=== PATIENT | male | born 1980 | race Caucasian/White ===

== ENCOUNTER → 2020-05-01 | Outpatient (CLI) | payer BC ==
[~2020-05-01] MED LIST: OXYACE5T PO
[2020-05-01 14:18] LABS: Adenovirus F 40/41 Not Detected (NOT DETECT); Astrovirus Not Detected (NOT DETECT); Campylobacter Sp Not Detected (NOT DETECT); Cryptosporidium Not Detected (NOT DETECT); Cyclospora Cayetanensis Not Detected (NOT DETECT); E. Coli O157 Not Detected (NOT DETECT); Entamoeba Histolytica Not Detected (NOT DETECT); Enteroaggregative E. coli-EAEC Not Detected (NOT DETECT); Enteropathogenic E. coli-EPEC Not Detected (NOT DETECT); Enterotoxigenic E. coli-ETEC Not Detected (NOT DETECT); Giardia Lamblia Not Detected (NOT DETECT); Norovirus GI/GII Not Detected (NOT DETECT); Plesiomonas Shigelloides Not Detected (NOT DETECT); Rotavirus A Not Detected (NOT DETECT); Salmonella Sp Not Detected (NOT DETECT); Sapovirus Not Detected (NOT DETECT); Shiga Toxin-prod E. coli-STEC Not Detected (NOT DETECT); Shigella/Enteroin E. coli-EIEC Not Detected (NOT DETECT); Vibrio Cholerae Not Detected (NOT DETECT); Vibrio Sp Not Detected (NOT DETECT); Yersinia Enterocolitica Not Detected (NOT DETECT)
== END ==
LOC: LAB SHORT 11:00
PROVIDERS: Nurse Practitioner Family
DX: R10.9 Unspecified abdominal pain (principal); R19.7 Diarrhea, unspecified
CPT/HCPCS: 0097U; 87324

== ENCOUNTER → 2021-03-10 | Outpatient (CLI) | payer BC ==
[~2021-03-10] MED LIST changes: +AZIT250 PO; +Acetaminophen650 M1 PO; +DEXA6 PO; +MONDOXYNE NL100 MG PO; +OMEP20ER PO; +PRED20 PO; +ZOFRAN4 MG PO
[2021-03-10 15:46] LABS: BASOPHILS ABSOLUTE AUTO 0.01 K/mm3 (0.00-0.23); BASOPHILS PERCENT AUTO 0 % (0-2); EOSINOPHILS PERCENT AUTO 0 % (0-6); Hematocrit 45.4 % (37.0-53.0); Hemoglobin 15.7 g/dL (13.5-17.5); IMMATURE GRAN ABSOLUTE AUTO 0.01 K/mm3 (0.00-0.10); IMMATURE GRAN PERCENT AUTO 0 % (0-1); LYMPHOCYTES ABSOLUTE AUTO 1.21 K/mm3 (0.84-5.20); LYMPHOCYTES PERCENT AUTO 24 % (21-46); MONOCYTES ABSOLUTE AUTO 0.46 K/mm3 (0.16-1.47); MONOCYTES PERCENT AUTO 9 % (4-13); Mean Corpuscular HGB 28.5 pg (26.0-34.0); Mean Corpuscular HGB Conc 34.6 g/dL (31.5-36.5); Mean Corpuscular Volume 83 fL (80-100); Mean Platelet Volume 10.4 fL (9.1-12.4); NEUTROPHILS ABSOLUTE AUTO 3.38 K/mm3 (1.96-9.15); NEUTROPHILS PERCENT AUTO 67 % (41-73); Platelet Count 153 K/mm3 (150-400); RDW Coefficient Variation 14.7 % (11.7-14.2); RDW Standard Deviation 44.7 fL (35.1-46.3); White Blood Cell Count 5.07 K/mm3 (4.00-11.30)
[2021-03-10 15:55] LABS: Bun/Creatinine Ratio 9.8 (12.0-20.0); Calcium, Blood 8.2 mg/dL (8.5-10.1); Creatinine, Blood 1.63 mg/dL (0.60-1.20); Potassium, Blood 3.8 mmol/L (3.5-5.5)
== END | disposition home or self-care (01) ==
LOC: LAB SHORT 15:41 → LAB 15:41
PROVIDERS: Physician Assistant Surgical
DX: U07.1 COVID-19 (principal)
CPT/HCPCS: 80048; 85025; 85379

== ENCOUNTER 2021-03-12 14:24 | Inpatient (IN) | payer BC ==
[~2021-03-12] VITALS: Ht 180.3 cm; Wt 121.9 kg
[~2021-03-12 14:24] MED LIST changes: -AZIT250 PO; -Acetaminophen650 M1 PO; -DEXA6 PO; -MONDOXYNE NL100 MG PO; -OMEP20ER PO; -PRED20 PO; -ZOFRAN4 MG PO
[2021-03-12] MEDS ORDERED: ZOFRAN4 MG PO (14:59)
[2021-03-12] MEDS ORDERED: PRED20 PO (14:59)
[2021-03-12] MEDS ORDERED: MONDOXYNE NL100 MG PO (15:00)
[2021-03-12 15:42] LABS: BASOPHILS ABSOLUTE AUTO 0.01 K/mm3 (0.00-0.23); BASOPHILS PERCENT AUTO 0 % (0-2); EOSINOPHILS PERCENT AUTO 0 % (0-6); Hematocrit 41.7 % (37.0-53.0); Hemoglobin 14.3 g/dL (13.5-17.5); IMMATURE GRAN ABSOLUTE AUTO 0.07 K/mm3 (0.00-0.10); IMMATURE GRAN PERCENT AUTO 1 % (0-1); LYMPHOCYTES PERCENT AUTO 7 % (21-46); MONOCYTES ABSOLUTE AUTO 0.44 K/mm3 (0.16-1.47); MONOCYTES PERCENT AUTO 4 % (4-13); Mean Corpuscular HGB 28.4 pg (26.0-34.0); Mean Corpuscular HGB Conc 34.3 g/dL (31.5-36.5); Mean Corpuscular Volume 83 fL (80-100); Mean Platelet Volume 10.4 fL (9.1-12.4); NEUTROPHILS ABSOLUTE AUTO 9.13 K/mm3 (1.96-9.15); NEUTROPHILS PERCENT AUTO 88 % (41-73); Platelet Count 222 K/mm3 (150-400); RDW Standard Deviation 45.2 fL (35.1-46.3); Red Blood Cell Count 5.04 M/mm3 (4.30-5.90); White Blood Cell Count 10.35 K/mm3 (4.00-11.30)
[2021-03-12 16:04] LABS: Alanine Aminotransfer (ALT/SGP 31 U/L (12-78); Albumin, Blood 2.6 g/dL (3.4-5.0); Albumin/Globulin Ratio 0.6 (0.8-1.8); Alk Phos 34 U/L (50-136); Anion Gap 9 mmol/L (6-16); Aspartate Aminotrans (AST/SGOT 71 U/L (12-37); Bilirubin, Total 0.5 mg/dL (0.1-1.0); Blood Urea Nitrogen 13 mg/dL (8-24); Bun/Creatinine Ratio 11.5 (12.0-20.0); CO2, Blood 23 mmol/L (21-32); Calcium, Blood 7.6 mg/dL (8.5-10.1); Chloride, Blood 103 mmol/L (98-108); Creatinine, Blood 1.13 mg/dL (0.60-1.20); Globulin, Blood 4.1 g/dL (2.2-4.0); Glomerular Filtration Rate >60 (60-); Glucose, Blood 118 mg/dL (70-99); Potassium, Blood 3.9 mmol/L (3.5-5.5); Sodium, Blood 135 mmol/L (136-145); Total Protein, Blood 6.7 g/dL (6.4-8.2); Troponin I 0.041 ng/mL (0.000-0.040)
[2021-03-12] MEDS ORDERED: AZIT250 PO (20:03)
--- NOTE | 2021-03-13 19:18 | NUR ---
SHIFT SUMMARY PT IS AO. PT DENIES PAIN, N/V, SOB. PT MEDICATED X1 FOR FEVER. PT CONTINUES TO TAKE O2 OFF T/O SHIFT AND DESATS TO AROUND 86% ON RA. PT EDUCATED ON NEED FOR O2. PT APPETITE IS POOR. PT IS SBA IN ROOM. PT IS ON 8 L VIA OXYMIZER WITH SATS GREATER THAN 90%. ENHANCED ISOLATION PRECAUTIONS MAINTAINED T/O SHIFT. PT IS IN BED, CALL LIGHT IN REACH, LOW POSITION.
--- NOTE | 2021-03-14 12:17 | NUR ---
TRANSFER NOTE THIS RN GAVE REPORT TO IKE SLATER ON PCU. PT IS ON BIPAP WITH SATS AT 93%. PT BELONGINGS GATHERED FROM ROOM. PT CHART HANDED TO BILLING ASSISTANT ON PCU. PT IS IN BED, RT AND RN AT BEDSIDE, CALL LIGHT IN REACH.
--- NOTE | 2021-03-14 13:49 | NUR ---
ARRIVAL TO PCU PATIENT ARRIVED TO PCU UNIT FROM [facility] BY STRIKER BED AT APROX 1217. [facility] FLOOR RN, [facility] RN, RT, AND BETH RN ALL WITH PATIENT DURING ARRIVAL AND HAND OFF. REPORT WAS GIVEN TO THIS RN FROM MURALI RAMIRES ON [facility]. PATIENT IS ON BIPAP 16/10 70% SPO2 90%. PATIENT REPOSITIONED TO LEFT SIDE. VSS. TELE SR 83. VSS. CALL LIGHT WITHIN REACH. WILL CONTINUE TO MONITOR AND PROVIDE CARE.
[2021-03-14 14:14] LABS: Hematocrit 41.8 % (37.0-53.0); Hemoglobin 13.9 g/dL (13.5-17.5); Mean Corpuscular HGB 28.1 pg (26.0-34.0); Mean Corpuscular HGB Conc 33.3 g/dL (31.5-36.5); Mean Corpuscular Volume 84 fL (80-100); Mean Platelet Volume 10.5 fL (9.1-12.4); Platelet Count 288 K/mm3 (150-400); RDW Coefficient Variation 15.5 % (11.7-14.2); RDW Standard Deviation 47.4 fL (35.1-46.3); Red Blood Cell Count 4.95 M/mm3 (4.30-5.90); White Blood Cell Count 15.41 K/mm3 (4.00-11.30)
[2021-03-14 14:20] LABS: Albumin, Blood 2.2 g/dL (3.4-5.0); Anion Gap 6 mmol/L (6-16); Blood Urea Nitrogen 19 mg/dL (8-24); Bun/Creatinine Ratio 18.4 (12.0-20.0); CO2, Blood 27 mmol/L (21-32); Chloride, Blood 103 mmol/L (98-108); Creatinine, Blood 1.03 mg/dL (0.60-1.20); Glomerular Filtration Rate >60 (60-); Glucose, Blood 130 mg/dL (70-99); Phosphorus, Blood 3.2 mg/dL (2.5-4.9); Potassium, Blood 4.3 mmol/L (3.5-5.5); Sodium, Blood 136 mmol/L (136-145)
[2021-03-14 14:43] LABS: BAND PERCENT MAN 1 % (0-8); BASOPHILS PERCENT MAN 0 % (0-2); EOSINOPHILS PERCENT MAN 0 % (0-6); LYMPHOCYTES PERCENT MAN 2 % (21-46); METAMYELOCYTE ABSOLUTE MAN 0.15 K/mm3 (0.00-0.00); METAMYELOCYTE PERCENT MAN 1 % (0-0); MONOCYTES ABSOLUTE MAN 0.15 K/mm3 (0.16-1.47); MONOCYTES PERCENT MAN 1 % (4-13); NEUTROPHILS ABSOLUTE MAN 14.79 K/mm3 (1.96-9.15); SEG NEUTROPHILS PERCENT MAN 95 % (41-73); TOTAL CELLS COUNTED 100
--- NOTE | 2021-03-14 15:46 | NUR ---
echocardiogram complete
--- NOTE | 2021-03-14 17:34 | NUR ---
SHIFT SUMMARY PATIENT ALERT AND ORIENTATED X4. VSS. SPO2 >90% ON BIPAP 16/10 70%. TELE SR 70-80S. PATIENT REPORTS NO CHEST PAIN OR SHORTNESS OF BREATH. PATIENT HAS A FEVER AND PATIENT RECEIVED TYELNOL PER EMAR, UPON REASSESSMENT PATIENT STILL HAD A LOW GRADE FEVER, SEE VITAL SIGNS, AND PATIENT BLANKETS WERE REMOVED. PATIENT ENCOURAGED TO PRONE AND LAY ON SIDE. PATIENT WILL LAY ON SIDE, BUT TURNS SELF BACK ONTO BACK. NO ACUTE CHANGES THIS SHIFT. CALL LIGHT WITHIN REACH. WILL CONTINUE TO MONITOR AND PROVIDE CARE UNTIL HAND OFF WITH NEXT SHIFT.
[2021-03-15 04:13] LABS: Hematocrit 40.9 % (37.0-53.0); Hemoglobin 13.4 g/dL (13.5-17.5); Mean Corpuscular HGB 27.5 pg (26.0-34.0); Mean Corpuscular HGB Conc 32.8 g/dL (31.5-36.5); Mean Corpuscular Volume 84 fL (80-100); Mean Platelet Volume 10.6 fL (9.1-12.4); Platelet Count 300 K/mm3 (150-400); RDW Coefficient Variation 15.3 % (11.7-14.2); RDW Standard Deviation 46.9 fL (35.1-46.3); Red Blood Cell Count 4.88 M/mm3 (4.30-5.90)
[2021-03-15 04:43] LABS: Anion Gap 7 mmol/L (6-16); Blood Urea Nitrogen 20 mg/dL (8-24); CO2, Blood 27 mmol/L (21-32); Chloride, Blood 103 mmol/L (98-108); Creatinine, Blood 0.91 mg/dL (0.60-1.20); Glomerular Filtration Rate >60 (60-); Glucose, Blood 109 mg/dL (70-99); Phosphorus, Blood 2.4 mg/dL (2.5-4.9); Sodium, Blood 137 mmol/L (136-145)
--- NOTE | 2021-03-15 06:09 | NUR ---
SHIFT SUMMARY PT A&OX4. IRRITABLE, WITHDRAWN. PT STATES, "I CANT DO THIS ANYMORE" AND PUNCHES PILLOW. SP02>90% ON BIPAP 01/05, 70% FI02. PT TOOK BIPAP OFF X2 THIS SHIFT AND DESATTED TO MID 70'S. WHEN ASKED WHY HE TOOK IT OFF, PT STATED, "I DONT KNOW". PT SATS INCREASED QUICKLY ONCE BIPAP REPLACED. TELEMETRY READS NSR, HR 80'S. PT DID NOT SLEEP MOST OF NIGHT, LAID IN BED AWAKE. DENIED PAIN. USED URINAL AT BEDSIDE. CALL LIGHT IN REACH. WILL GIVE REPORT TO ONCOMING NURSE.
[2021-03-15 06:10] LABS: BAND PERCENT MAN 2 % (0-8); BASOPHILS ABSOLUTE MAN 0.11 K/mm3 (0.00-0.23); BASOPHILS PERCENT MAN 1 % (0-2); EOSINOPHILS PERCENT MAN 0 % (0-6); LYMPHOCYTES ABSOLUTE MAN 0.89 K/mm3 (0.84-5.20); LYMPHOCYTES PERCENT MAN 8 % (21-46); MONOCYTES ABSOLUTE MAN 0.67 K/mm3 (0.16-1.47); MONOCYTES PERCENT MAN 6 % (4-13); NEUTROPHILS ABSOLUTE MAN 9.52 K/mm3 (1.96-9.15); SEG NEUTROPHILS PERCENT MAN 83 % (41-73); TOTAL CELLS COUNTED 100
--- NOTE | 2021-03-15 07:50 | NUR ---
ASSUMED CARE: REPORT RECEIVED FROM MURALI Mace RN. ASSUMED CARE OF THIS PT AT APPROX 0700. ON ASSESSMENT, THE PT IS RESTING QUIETLY & AWAKENS EASILY TO VERBAL STIMULUS. HE IS A&O TO ALL, FLAT IN AFFECT & WITHDRAWN OVERALL. LS DIM T/O, COARSE IN BASES. PT ON BIPAP W/ SETTINGS: 16/10, 70% FIO2 & BACKUP RATE 10 W/ O2 SATS > 92%. TELE SHOWS SR W/ HR 80s, BP STABLE. THE PT STS FEELING "VERY HUNGRY" THIS AM BUT HE CANNOT TOLERATE BEING OFF OF BIPAP LONG ENOUGH TO EAT & THERE IS CURRENTLY NO AIRVO AVAILABLE FOR HIS USE. RT AWARE OF NEED FOR BIPAP IN THIS ROOM WHEN AVAILABLE. PT VOIDS USING URINAL. SKIN CONDITION OVERALL CDI & PT REPOSITIONS SELF IN BED W/O DIFFICULTY. WILL CONTINUE TO MONITOR & UPDATE NEEDED.
--- NOTE | 2021-03-15 08:25 | NUR ---
DR SANTIAGO: PROVIDER AT BEDSIDE TO EVAL PT THIS AM. THIS RN HAS DISCUSSED PT's FLAT AFFECT & OVERALL BEING WITHDRAWN. THE PT HAS STATED TO THE PROVIDER THAT HE DOES FEEL "DEPRESSED." DR SANTIAGO IS GOING TO REVIEW THE PT's CHART & DETERMINE IF STARTING AN ANTIDEPRESSANT MEDICATION WOULD BE APPROPRIATE FOR THE PT AT THIS TIME. SHE WOULD LIKE THIS RN TO ATTEMPT GETTING THE PT IN CONTACT W/ HIS FAMILY TODAY TO SEE IF THAT WOULD HELP IMPROVE HIS OUTLOOK ON THE SITUATION. NO OTHER CHANGES AT THIS TIME.
--- NOTE | 2021-03-15 17:37 | NUR ---
SHIFT SUMMARY: NO ACUTE CHANGES SINCE PRIOR UPDATES. PT REMAINS A&O, PLEASANT & COOPERATIVE. HE IS MORE ANIMATED W/ STAFF THIS AFTERNOON & OVERALL SEEMS IN BETTER SPIRITS. LS DIM T/O, PT ON AIRVO SINCE APPROX 1120 THIS MORNING & HAS TOLERATED THIS WELL. CURRENT SETTINGS: 60 L/MIN & 90% FIO2 W/ O2 SATS > 92% ON AVG, DESATS TO 84% W/ COUGHING EPISODES BUT RECOVERS QUICKLY W/ FOCUSED BREATHING. MONITOR SHOWS SB-SR W/ HR 40-70s, BP STABLE. THE PT IS TOLERATING PO INTAKE WELL & HAS NO GI COMPLAINTS. VOIDS USING URINAL AT BEDSIDE. SKIN CONDITION OVERALL INTACT, PT IS ABLE TO REPOSITION SELF APPROX Q2H. NEEDS ENCOURAGEMENT FOR FAR SIDE-LYING & PRONE POSITIONING. WILL CONTINUE TO MONITOR & REPORT OFF TO ONCOMING RN.
--- NOTE | 2021-03-16 02:28 | NUR ---
PAUSE BONE GRINDER W/ CALL TO THIS RN REPORTING PT HR 30's & LOW 27 BPM. PT ALSO W/ A 4.2 SEC PAUSE @ 0126. EVENT STRIP PRINTED IN CHART. PT SLEEPING IN BED AT TIME OF PAUSE. PT WOKEN & VITALS DONE, SYS BP 90's. PT DENYING SYMPTOMS, STATING "NO, I'M JUST TIRED." PT REFUSING BIPAP. SPO2 > 90% ON AIRVO @ 60L, FIO2 90%.
[2021-03-16 04:26] LABS: Hematocrit 42.4 % (37.0-53.0); Mean Corpuscular HGB 28.2 pg (26.0-34.0); Mean Corpuscular Volume 85 fL (80-100); Mean Platelet Volume 10.9 fL (9.1-12.4); Platelet Count 334 K/mm3 (150-400); RDW Coefficient Variation 15.5 % (11.7-14.2); Red Blood Cell Count 4.97 M/mm3 (4.30-5.90); White Blood Cell Count 9.09 K/mm3 (4.00-11.30)
[2021-03-16 04:40] LABS: Anion Gap 5 mmol/L (6-16); Blood Urea Nitrogen 24 mg/dL (8-24); Bun/Creatinine Ratio 28.6 (12.0-20.0); CO2, Blood 30 mmol/L (21-32); Calcium, Blood 8.3 mg/dL (8.5-10.1); Chloride, Blood 105 mmol/L (98-108); Creatinine, Blood 0.84 mg/dL (0.60-1.20); Glomerular Filtration Rate >60 (60-); Glucose, Blood 171 mg/dL (70-99); Phosphorus, Blood 4.1 mg/dL (2.5-4.9); Potassium, Blood 4.2 mmol/L (3.5-5.5); Sodium, Blood 140 mmol/L (136-145)
[2021-03-16 05:26] LABS: BASOPHILS PERCENT MAN 0 % (0-2); EOSINOPHILS PERCENT MAN 0 % (0-6); LYMPHOCYTES ABSOLUTE MAN 0.81 K/mm3 (0.84-5.20); LYMPHOCYTES PERCENT MAN 9 % (21-46); MONOCYTES ABSOLUTE MAN 0.45 K/mm3 (0.16-1.47); MONOCYTES PERCENT MAN 5 % (4-13); NEUTROPHILS ABSOLUTE MAN 7.81 K/mm3 (1.96-9.15); SEG NEUTROPHILS PERCENT MAN 86 % (41-73); TOTAL CELLS COUNTED 100
--- NOTE | 2021-03-16 06:09 | NUR ---
SHIFT SUMMARY PT A&O X4. VSS. MONITOR SHOWS SB-SR, HR 30's-60's. PT W/ 4.2 SEC PAUSE THIS SHIFT, SEE PREVIOUS NOTE & EVENT STRIP IN CHART. SPO2 > 90% ON AIRVO @ 60L, FIO2 90%. PT W/ OCCASSIONAL DESAT TO 80's W/ COUGHING OR DISLODGING OF CANNULA FROM NOSE. PT REPOSITIONING SELF IN BED, ROTATING SIDES T/O SHIFT. NO OTHER EVENTS OVER NIGHT. WILL CONTINUE TO MONITOR & PROVIDE CARE UNTIL REPORT OFF TO DAY SHIFT RN.
--- NOTE | 2021-03-16 09:10 | NUR ---
ASSUMED CARE: REPORT RECEIVED FROM YANET Mace RN. ASSUMED CARE OF THIS PT AT APPROX 0700. ON ASSESSMENT, THE PT IS AWAKE, A&O TO ALL. AFFECT IS FLAT BUT OVERALL SEEMS IMPROVED SINCE YESTERDAY AM ASSESSMENT. THE PT HAS DENIED THE NEED FOR ORDERED ZOLOFT AFTER EXPLAINATION OF THE MEDICATION & MEDICATION HAS BEEN DOCUMENTED REFUSED. THE PT STS IF HE BEGINS TO FEEL MORE "DEPRESSED" HE WILL LET NURSING STAFF KNOW SO THAT MED MAY BE RESUMED. LS DIM T/O, PT ON AIRVO W/ SETTINGS: 60 L/MIN & 90% FIO2. O2 SATS > 90% ON AVG, DESATS TO 84% W/ EXERTION OR COUGHING EPISODES. MONITOR SHOWS SB-SR W/ HR 40-60s, BP STABLE. PT HAS NO GI COMPLAINTS & IS TOLERATING PO INTAKE WELL. VOIDS W/O DIFFICULTY USING URINAL. SKIN CONDITION OVERALL INTACT, PT HAS BEEN ENCOURAGED TO REPOSITION PRONE & SIDE-LYING. WILL CONTINUE TO MONITOR & UPDATE NEEDED.
--- NOTE | 2021-03-16 15:15 | NUR ---
DR CRESPO: PROVIDER AT BEDSIDE FOR CARDIO CONSULT R/T BRADYCARDIA. SHE STS THAT SHE HAS ENCOURAGED THE PT TO WEAR THE BIPAP DURING THE NIGHT & BELIEVES THIS WILL HELP W/ THE STRAIN ON HIS HEART & LUNGS R/T COVID. THE PT STS HE DOES NOT WANT TO WEAR THE BIPAP ANYMORE DESPITE ENCOURAGEMENT. THE PROVIDER WILL BE AVAILABLE IF NEEDED.
--- NOTE | 2021-03-16 19:29 | NUR ---
SHIFT SUMMARY: NO ACUTE CHANGES SINCE PRIOR UPDATES. PT REMAINS A&O, GENERALLY COOPERATIVE W/ CARE. PT ON AIRVO W/ SETTINGS: 60 L/MIN & 100% FIO2 W/ O2 SATS 87-93%. MONITOR SHOWS SB-SR W/ HR 40-60s, BP STABLE. PT HAS NO GI COMPLAINTS, IS TOLERATING PO INTAKE WELL. VOIDS W/O DIFFICULTY USING URINAL. SKIN CONDITION OVERALL INTACT & PT HAS BEEN ABLE TO REPOSITION SELF W/O ASSISTANCE THIS SHIFT. PRONING & SIDE-LYING ENCOURAGED. WILL CONTINUE TO MONITOR & REPORT OFF TO ONCOMING RN.
[2021-03-17 04:01] LABS: BASOPHILS ABSOLUTE AUTO 0.05 K/mm3 (0.00-0.23); BASOPHILS PERCENT AUTO 0 % (0-2); EOSINOPHILS PERCENT AUTO 0 % (0-6); Hematocrit 43.2 % (37.0-53.0); Hemoglobin 14.2 g/dL (13.5-17.5); Mean Corpuscular HGB 27.7 pg (26.0-34.0); Mean Corpuscular HGB Conc 32.9 g/dL (31.5-36.5); Mean Corpuscular Volume 84 fL (80-100); Platelet Count 395 K/mm3 (150-400); RDW Coefficient Variation 15.3 % (11.7-14.2); RDW Standard Deviation 47.3 fL (35.1-46.3); Red Blood Cell Count 5.12 M/mm3 (4.30-5.90); White Blood Cell Count 11.48 K/mm3 (4.00-11.30)
[2021-03-17 04:25] LABS: Anion Gap 7 mmol/L (6-16); Blood Urea Nitrogen 26 mg/dL (8-24); Bun/Creatinine Ratio 37.1 (12.0-20.0); CO2, Blood 27 mmol/L (21-32); Calcium, Blood 8.1 mg/dL (8.5-10.1); Chloride, Blood 105 mmol/L (98-108); Glomerular Filtration Rate >60 (60-); Glucose, Blood 169 mg/dL (70-99); Phosphorus, Blood 3.7 mg/dL (2.5-4.9); Potassium, Blood 4.2 mmol/L (3.5-5.5); Sodium, Blood 139 mmol/L (136-145)
[2021-03-17 04:30] LABS: IMMATURE GRAN ABSOLUTE AUTO 0.23 K/mm3 (0.00-0.10); IMMATURE GRAN PERCENT AUTO 2 % (0-1); LYMPHOCYTES ABSOLUTE AUTO 1.49 K/mm3 (0.84-5.20); LYMPHOCYTES PERCENT AUTO 13 % (21-46); MONOCYTES ABSOLUTE AUTO 1.04 K/mm3 (0.16-1.47); MONOCYTES PERCENT AUTO 9 % (4-13); NEUTROPHILS ABSOLUTE AUTO 8.67 K/mm3 (1.96-9.15); NEUTROPHILS PERCENT AUTO 76 % (41-73)
--- NOTE | 2021-03-17 05:27 | NUR ---
SHIFT SUMMARY NO ACUTE CHANGES THIS SHIFT. VSS. AXO. PT TOLD IF HE DESATTED <90% ON AIRVO 60l 100% HE WOULD BE SWITCHED TO BIPAP. PT HAD BEEN RELUCTANT AND SOMEWHAT REFUSIVE OF BIPAP PRIOR TO THIS PER REPORT. PT ACCEPTED THIS. PT HAS NOT DESATTED <90 EXCEPT TO URINATE. THUS, PT REMAINS ON AIRVO. PT HAS BEEN BRADYCARDIC AT A FEW POINTS THIS SHIFT EVEN INTO THE 30'S, ASYMPTOMATIC. PT HAS SIDE PRONED FOR MAJORITY OF SHIFT. OTHERWISE, PT RESTING OFF AND ON T/O SHIFT. REMAINS IN ISOLATION.
--- NOTE | 2021-03-17 10:00 | NUR ---
CARE ASSUMPTION PATIENT ALERT AND ORIENTATED X4. VSS. SPO2 >90% ON AIRVO 60L 90%. TELE SR TO SB IN THE 50-60S. PATIENT DENIES CHEST PAIN, SHORTNESS OF BREATH, OR PAIN. PATIENT RESTING IN BED. PATIENT CALL LIGHT WITHIN REACH AND BED AT LOWEST POSITION. WILL CONTINUE TO MONITOR AND PROVIDE CARE.
--- NOTE | 2021-03-17 17:23 | NUR ---
SHIFT SUMMARY PATIENT ALERT AND ORIENTATED X4. VSS. SPO2 >90% ON AIRVO 60L 100%. TELE SR 62. PT REPORTS NO CHEST PAIN, SHORTNESS OF BREATH, OR PAIN. NO ACUTE CHANGES THIS SHIFT. CALL LIGHT WITHIN REACH. WILL CONTINUE MONITOR AND PROVIDE CARE UNTIL HAND OFF WITH NEXT SHIFT.
[2021-03-18 03:53] LABS: BASOPHILS ABSOLUTE AUTO 0.05 K/mm3 (0.00-0.23); BASOPHILS PERCENT AUTO 1 % (0-2); EOSINOPHILS ABSOLUTE AUTO 0.03 K/mm3 (0.00-0.68); EOSINOPHILS PERCENT AUTO 0 % (0-6); Hematocrit 42.4 % (37.0-53.0); IMMATURE GRAN ABSOLUTE AUTO 0.48 K/mm3 (0.00-0.10); IMMATURE GRAN PERCENT AUTO 4 % (0-1); LYMPHOCYTES ABSOLUTE AUTO 1.73 K/mm3 (0.84-5.20); LYMPHOCYTES PERCENT AUTO 16 % (21-46); MONOCYTES ABSOLUTE AUTO 0.99 K/mm3 (0.16-1.47); MONOCYTES PERCENT AUTO 9 % (4-13); Mean Corpuscular HGB 27.8 pg (26.0-34.0); Mean Corpuscular Volume 84 fL (80-100); Mean Platelet Volume 10.5 fL (9.1-12.4); NEUTROPHILS ABSOLUTE AUTO 7.52 K/mm3 (1.96-9.15); NEUTROPHILS PERCENT AUTO 70 % (41-73); Platelet Count 410 K/mm3 (150-400); RDW Coefficient Variation 15.3 % (11.7-14.2); RDW Standard Deviation 46.8 fL (35.1-46.3); Red Blood Cell Count 5.03 M/mm3 (4.30-5.90)
[2021-03-18 04:09] LABS: Anion Gap 7 mmol/L (6-16); Blood Urea Nitrogen 26 mg/dL (8-24); Bun/Creatinine Ratio 36.8 (12.0-20.0); CO2, Blood 25 mmol/L (21-32); Calcium, Blood 7.9 mg/dL (8.5-10.1); Chloride, Blood 107 mmol/L (98-108); Creatinine, Blood 0.71 mg/dL (0.60-1.20); Glomerular Filtration Rate >60 (60-); Glucose, Blood 154 mg/dL (70-99); Potassium, Blood 4.2 mmol/L (3.5-5.5); Sodium, Blood 139 mmol/L (136-145)
--- NOTE | 2021-03-18 05:20 | NUR ---
SHIFT SUMMARY PT HAS REFUSED TO PRONE. PT APPEARS TO HAVE A FLAT AFFECT AND MAY COME ACROSS ANGRY AT TIMES. PT WAS EDUCATED ON BENEFITS OF PRONING. THE PT CONTINUALLY CHOOSES TO LIE SUPINE AND SPO2 WILL READ 86-90% IN THIS POSITION. WHEN REMINDED TO USE THE SIDE-LYING POSITION, THE PT WILL ALTERNATE SIDES ON OWN AND SPO2 WILL READ >90%. NO OTHER ACUTE CHANGES NOTED.
--- NOTE | 2021-03-18 18:23 | NUR ---
SHIFT SUMMARY. ASSUMED CARE AT 0700. AIR VO IN PLACE AT 100% 60L. LAYING IN LOW FOWLERS IN BED, ROLLS TO SIDE IF ENCOURAGED. ENCOURAGED SITTING IN CHAIR TODAY, PT REFUSED, REFUSED PRONING DESPITE CONVERSATIONS REGARDING IMPORTANCE. PLACED ON BIPAP BRIEFLY IN AM, STATES WAS NOT FEELING WELL, PROVIDER RECOMMENDED BIPAP. WORE FOR APPROX 1 HOUR THEN BACK TO AIR VO. ANGRY APPEARING AFFECT. MINIMAL RESPONSES TO QUESTIONS WITH NO CONVERSATION WITH NURSING STAFF. VSS, WILL CONTINUE TO MONITOR AND TREAT UNTIL CHANGE OF SHIFT.
[2021-03-19 04:46] LABS: BASOPHILS ABSOLUTE AUTO 0.08 K/mm3 (0.00-0.23); BASOPHILS PERCENT AUTO 1 % (0-2); EOSINOPHILS ABSOLUTE AUTO 0.12 K/mm3 (0.00-0.68); EOSINOPHILS PERCENT AUTO 1 % (0-6); Hematocrit 43.3 % (37.0-53.0); Hemoglobin 14.4 g/dL (13.5-17.5); IMMATURE GRAN ABSOLUTE AUTO 0.64 K/mm3 (0.00-0.10); IMMATURE GRAN PERCENT AUTO 6 % (0-1); LYMPHOCYTES ABSOLUTE AUTO 2.05 K/mm3 (0.84-5.20); LYMPHOCYTES PERCENT AUTO 18 % (21-46); MONOCYTES ABSOLUTE AUTO 0.94 K/mm3 (0.16-1.47); MONOCYTES PERCENT AUTO 8 % (4-13); Mean Corpuscular HGB Conc 33.3 g/dL (31.5-36.5); Mean Corpuscular Volume 84 fL (80-100); Mean Platelet Volume 10.5 fL (9.1-12.4); NEUTROPHILS ABSOLUTE AUTO 7.68 K/mm3 (1.96-9.15); NEUTROPHILS PERCENT AUTO 67 % (41-73); Platelet Count 425 K/mm3 (150-400); RDW Coefficient Variation 15.2 % (11.7-14.2); RDW Standard Deviation 46.4 fL (35.1-46.3); Red Blood Cell Count 5.15 M/mm3 (4.30-5.90); White Blood Cell Count 11.51 K/mm3 (4.00-11.30)
[2021-03-19 05:03] LABS: Albumin, Blood 2.2 g/dL (3.4-5.0); Anion Gap 5 mmol/L (6-16); Blood Urea Nitrogen 26 mg/dL (8-24); Bun/Creatinine Ratio 33.5 (12.0-20.0); CO2, Blood 27 mmol/L (21-32); Chloride, Blood 108 mmol/L (98-108); Creatinine, Blood 0.78 mg/dL (0.60-1.20); Glomerular Filtration Rate >60 (60-); Glucose, Blood 133 mg/dL (70-99); Potassium, Blood 4.3 mmol/L (3.5-5.5); Sodium, Blood 140 mmol/L (136-145)
--- NOTE | 2021-03-19 05:03 | NUR ---
SHIFT SUMMARY PT HAS ASKED SEVERAL QUESTIONS ABOUT AT-HOME OXYGEN THERAPY EQUIPMENT WHICH THIS RN ANSWERED TO THE BEST OF THEIR ABILITY. PT EXPRESSED HOPE AND DESIRE TO RETURN HOME TO [place]. PT HAS MAINTAINED A LOW FOLWER'S POSITION AND WOULD POSITION SELF ON SIDE AND ROTATE, REFUSED PRONE POSITION. SPO2 MAINTAINED >90% FOR THE DURATION. PT APPEARS WITHDRAWN BUT WILL INTERACT WHEN ADDRESSED DIRECTLY, THEY SEEM TO PREFER CONCISE VERBAL INTERACTION. VSS. NO OTHER ACUTE CHANGES NOTED.
[2021-03-19 05:15] LABS: BASOPHILS PERCENT MAN 0 % (0-2); EOSINOPHILS ABSOLUTE MAN 0.11 K/mm3 (0.00-0.68); EOSINOPHILS PERCENT MAN 1 % (0-6); LYMPHOCYTES % ATYPICAL MANUAL 1 % (0-0); LYMPHOCYTES ABSOLUTE MAN 1.38 K/mm3 (0.84-5.20); LYMPHOCYTES PERCENT MAN 11 % (21-46); MONOCYTES PERCENT MAN 7 % (4-13); SEG NEUTROPHILS PERCENT MAN 80 % (41-73); TOTAL CELLS COUNTED 100
--- NOTE | 2021-03-19 18:00 | NUR ---
SHIFT SUMMARY; ASSUMED CARE AT 0700, AIR VO AT 55L 70%. A/A/OX4 WITH FLAT ANGRY AFFECT. TELLS DR. SANTIAGO IS LEAVING TODAY AND GETS SELF DRESSED. AFTER MULTIPLE DISCUSSIONS WITH STAFF MEMBERS REGARDING RISKS OF LEAVING DECIDES TO STAY. DISSCUSSED COOPERATION WITH CARE TO IMPROVE RECOVERY. SITS IN CHAIR AT BEDSIDE IN AFTERNOON, REMOVES AIRVO WITHOUT TELLING NURSE. SATS FOUND TO BE 84%. PLACED ON HIGH ALVIN CANNULA AT 15L. SATS INCREASED TO 91%. PUTS SELF BACK TO BED BUT AGREES TO SIT IN CHAIR FOR MEALS. COOPERATION WITH CARE IMPROVED IN AFTERNOON. WILL CONTINUE TO TREAT AND MONITOR UNTIL CHANGE OF SHIFT.
[2021-03-20 04:07] LABS: BASOPHILS ABSOLUTE AUTO 0.06 K/mm3 (0.00-0.23); BASOPHILS PERCENT AUTO 1 % (0-2); EOSINOPHILS ABSOLUTE AUTO 0.11 K/mm3 (0.00-0.68); EOSINOPHILS PERCENT AUTO 1 % (0-6); Hematocrit 43.4 % (37.0-53.0); Hemoglobin 14.3 g/dL (13.5-17.5); IMMATURE GRAN ABSOLUTE AUTO 0.65 K/mm3 (0.00-0.10); IMMATURE GRAN PERCENT AUTO 6 % (0-1); LYMPHOCYTES ABSOLUTE AUTO 1.94 K/mm3 (0.84-5.20); LYMPHOCYTES PERCENT AUTO 17 % (21-46); MONOCYTES ABSOLUTE AUTO 0.86 K/mm3 (0.16-1.47); MONOCYTES PERCENT AUTO 7 % (4-13); Mean Corpuscular HGB Conc 32.9 g/dL (31.5-36.5); Mean Corpuscular Volume 85 fL (80-100); Mean Platelet Volume 10.6 fL (9.1-12.4); NEUTROPHILS ABSOLUTE AUTO 7.94 K/mm3 (1.96-9.15); NEUTROPHILS PERCENT AUTO 69 % (41-73); NRBC ABSOLUTE 0.02 K/mm3 (0.00-0.02); NRBC Auto 0.2 /100 WBC (0.0-0.2); Platelet Count 427 K/mm3 (150-400); RDW Coefficient Variation 15.5 % (11.7-14.2); RDW Standard Deviation 47.7 fL (35.1-46.3); Red Blood Cell Count 5.11 M/mm3 (4.30-5.90); White Blood Cell Count 11.56 K/mm3 (4.00-11.30)
[2021-03-20 04:18] LABS: Albumin, Blood 2.2 g/dL (3.4-5.0); Anion Gap 6 mmol/L (6-16); Blood Urea Nitrogen 28 mg/dL (8-24); Bun/Creatinine Ratio 36.5 (12.0-20.0); CO2, Blood 26 mmol/L (21-32); Calcium, Blood 8.1 mg/dL (8.5-10.1); Chloride, Blood 107 mmol/L (98-108); Creatinine, Blood 0.77 mg/dL (0.60-1.20); Glomerular Filtration Rate >60 (60-); Glucose, Blood 160 mg/dL (70-99); Phosphorus, Blood 3.1 mg/dL (2.5-4.9); Potassium, Blood 4.3 mmol/L (3.5-5.5); Sodium, Blood 139 mmol/L (136-145)
--- NOTE | 2021-03-20 05:04 | NUR ---
SHIFT SUMMARY PT. A/OX4, QUIET, WITHDRAWN, AND EASILY IRRITABLE WHILE PROVIDING PATIENT CARE. ON HFNC AT 15L 02 STATS MAINTAINING ABOVE 91%. COOPERATIVE WITH HEALTH TEAM. ABLE TO TOLERATE DIET AND PO INTAKE. PT. DID REMOVE THE HFNC TO USE THE RESTROOM AND 02 STATS DROPPED DOWN TO THE LOW 80'S. PT. AWARE THAT THE HFNC NEEDS TO STAY ON AT ALL TIMES. EDUCATED ON INCENTIVE SPIROMETER USE AND THE IMPORTANCE OF PRONING. PT WAS RECEPTIVE TOWARDS THE INCENTIVE SPIROMETER BUT REFUSED PRONING. WILL CONTINUE TO TREAT AND MONITOR PT. UNTIL SHIFT CHANGE. NO OTHER ACUTE CHANGES NOTED. AT THE TIME PT. IS COMFERTABLE AND STABLE AT BEDSIDE.
[2021-03-20 05:28] LABS: BASOPHILS PERCENT MAN 0 % (0-2); EOSINOPHILS PERCENT MAN 0 % (0-6); LYMPHOCYTES ABSOLUTE MAN 1.38 K/mm3 (0.84-5.20); LYMPHOCYTES PERCENT MAN 12 % (21-46); MONOCYTES ABSOLUTE MAN 0.69 K/mm3 (0.16-1.47); MONOCYTES PERCENT MAN 6 % (4-13); MYELOCYTE ABSOLUTE MAN 0.46 K/mm3 (0.00-0.00); MYELOCYTE PERCENT MAN 4 % (0-0); NEUTROPHILS ABSOLUTE MAN 9.01 K/mm3 (1.96-9.15); SEG NEUTROPHILS PERCENT MAN 78 % (41-73); TOTAL CELLS COUNTED 100
--- NOTE | 2021-03-20 13:53 | NUR ---
OXYGEN: PT HAD O2 OFF TO GET UP IN ROOM. SATS 88-89% ON RA. PT HIGH FLOW WEANED TO 10L, 96%. WILL CONT TO MONITOR AND WEAN O2 ABLE.
--- NOTE | 2021-03-20 16:41 | NUR ---
OXYGEN: PT WEANED TO 6L NC. PT SATS 93-94%. WILL CONT TO MONITOR.
--- NOTE | 2021-03-20 18:22 | NUR ---
PT HAS BEEN STABLE THIS SHIFT. PT ABLE TO WEAN TO 6L HIGH FLOW O2. PT USING SPIROMETRY IF ENCOURAGED. NO COUGH. PT DOES NOT TOLERATE PRONE POSITION. PTABLE TO GET UP INDEP IN ROOM. BRADYCARDIC AT TIMES, NON SYMPTOMATIC. ROCEPHINE COMPLETED TODAY, IV SL X2. PT BEOT DIET WELL. VOIDING APPROPRIATELY. BM TODAY. DENIES PAIN. AM LABS TO REPEAT. PT HOPEFUL TO DC HOME SOON.
[2021-03-21 03:58] LABS: Hematocrit 47.3 % (37.0-53.0); Hemoglobin 15.7 g/dL (13.5-17.5); Mean Corpuscular HGB 28.2 pg (26.0-34.0); Mean Corpuscular HGB Conc 33.2 g/dL (31.5-36.5); Mean Corpuscular Volume 85 fL (80-100); Mean Platelet Volume 10.3 fL (9.1-12.4); Platelet Count 467 K/mm3 (150-400); RDW Coefficient Variation 15.7 % (11.7-14.2); RDW Standard Deviation 48.1 fL (35.1-46.3); Red Blood Cell Count 5.56 M/mm3 (4.30-5.90); White Blood Cell Count 14.31 K/mm3 (4.00-11.30)
[2021-03-21 04:14] LABS: Albumin, Blood 2.5 g/dL (3.4-5.0); Anion Gap 4 mmol/L (6-16); Blood Urea Nitrogen 25 mg/dL (8-24); Bun/Creatinine Ratio 31.7 (12.0-20.0); CO2, Blood 27 mmol/L (21-32); Calcium, Blood 8.4 mg/dL (8.5-10.1); Chloride, Blood 108 mmol/L (98-108); Creatinine, Blood 0.79 mg/dL (0.60-1.20); Glomerular Filtration Rate >60 (60-); Glucose, Blood 141 mg/dL (70-99); Phosphorus, Blood 3.2 mg/dL (2.5-4.9); Potassium, Blood 4.4 mmol/L (3.5-5.5); Sodium, Blood 139 mmol/L (136-145)
[2021-03-21 05:59] LABS: BAND PERCENT MAN 2 % (0-8); BASOPHILS PERCENT MAN 0 % (0-2); EOSINOPHILS ABSOLUTE MAN 0.28 K/mm3 (0.00-0.68); EOSINOPHILS PERCENT MAN 2 % (0-6); LYMPHOCYTES ABSOLUTE MAN 1.14 K/mm3 (0.84-5.20); LYMPHOCYTES PERCENT MAN 8 % (21-46); MONOCYTES ABSOLUTE MAN 0.71 K/mm3 (0.16-1.47); MONOCYTES PERCENT MAN 5 % (4-13); NEUTROPHILS ABSOLUTE MAN 12.16 K/mm3 (1.96-9.15); SEG NEUTROPHILS PERCENT MAN 83 % (41-73); TOTAL CELLS COUNTED 100
--- NOTE | 2021-03-21 06:51 | NUR ---
SHIFT SUMMARY PT. A/OX4 WAS MORE COMPLIENT WITH CARE TONIGHT. PT. DID TRY PRONING POSITION AND ON HIS SIDE. HAS BEEN USING THE INCENTIVE SPIROMETER AT BEDSIDE. IS ON HFNC ON 5L AND MAINTAINING O2 ABOVE 90%. PT. TAKES OFF O2 WHEN NEEDS TO USE THE RESTROOM AND DOES DESAT TO AROUND 85% BUT RECUPERATES FAST WHEN PUTS BACK HFNC. GREAT PO INTAKE W/O ANY N/V. PT. STABLE AT BEDSIDE. WILL CONTINUE CARE TILL CHANGE OF SHIFT. NO ACUTE CHANGES NOTED.
[2021-03-21] MEDS ORDERED: Acetaminophen650 M1 PO (16:15)
[2021-03-21] MEDS ORDERED: DEXA6 PO (16:16)
[2021-03-21] MEDS ORDERED: OMEP20ER PO (16:17)
--- NOTE | 2021-03-21 19:54 | NUR ---
DISCHARGE SUMMARY: LATE ENTRY: 1635: PATIENT READY TO DISCHARGE. DURING THE MORNING, PATIENT SPO2 ON 94-95 ON 5L VIA NC. PATIENT DENIES SOB OR DIFFICULTY BREATHING AT REST. PATIENT REPORTS SOME SOB WITH ACTIVITY AND REPORTS THAT HE RECOVERS QUICKLY. PATIENT REPORTS THAT HE IS EAGER TO DISCHARGE TODAY. PT PERFORMED HOME O2 EVALUATION. CALLED RESULTS TO [facility]. [facility] DELIVERED AN O2 TANK FOR TRANSPORT TO THE PATIENT'S ROOM PRIOR TO DISCHARGE. AFTER THE HOME O2 EVALUATION WAS PERFORMED, PATIENT HAS BEEN ABLE TO SIT IN HIS BED ON RA WITH SPO2 AT 90-91%. PATIENT DENIES SOB OR RESPIRATORY DISTRESS AT REST. DISCHARGE RX FAXED TO [facility] PER PATIENT REQUEST. DISCHARGE INSTRUCTIONS AND EDUCATION PROVIDED. ALL QUESTIONS AND CONCERNS ADDRESSED. PATIENT DENIES FURTHER NEEDS. PATIENT DISCHARGED IN WHEELCHAIR WITH DOCK CLERK. PATIENT STABLE AT TIME OF DISCHARGE.
== END 2021-03-21 16:48 | disposition home or self-care (01) | DRG 177 ==
LOC: ER 14:24 → MEDS 20:48 → PCU 20:48 → MEDS 20:50 → PCU 03-14 11:15
PROVIDERS: Family Medicine; Physician Assistant; ADMIT Hospitalist
PROC: 3E0333Z Introduction of Anti-inflammatory into Peripheral Vein, Percutaneous Approach (ICD-10-PCS; principal; 2021-03-12)
PROC: 8E0ZXY6 Isolation (ICD-10-PCS; 2021-03-12)
PROC: 5A09457 Assistance with Respiratory Ventilation, 24-96 Consecutive Hours, Continuous Positive Airway Pressure (ICD-10-PCS; 2021-03-14)
PROC: XW033E5 Introduction of Remdesivir Anti-infective into Peripheral Vein, Percutaneous Approach, New Technology Group 5 (ICD-10-PCS; 2021-03-14)
PROC: 5A0935A Assistance with Respiratory Ventilation, Less than 24 Consecutive Hours, High Flow/Velocity Cannula (ICD-10-PCS; 2021-03-19)
DX: U07.1 COVID-19 (principal); J12.82 Pneumonia due to coronavirus disease 2019; A41.89 Other specified sepsis; J96.01 Acute respiratory failure with hypoxia; Z68.41 Body mass index [BMI] 40.0-44.9, adult; E87.1 Hypo-osmolality and hyponatremia; I24.8 Other forms of acute ischemic heart disease; F32.9 Major depressive disorder, single episode, unspecified; R00.1 Bradycardia, unspecified; D72.829 Elevated white blood cell count, unspecified; T38.0X5A Adverse effect of glucocorticoids and synthetic analogues, initial encounter; E83.39 Other disorders of phosphorus metabolism; E66.01 Morbid (severe) obesity due to excess calories; R74.01 Elevation of levels of liver transaminase levels; R79.1 Abnormal coagulation profile; R19.7 Diarrhea, unspecified; G47.30 Sleep apnea, unspecified; E88.09 Other disorders of plasma-protein metabolism, not elsewhere classified
CPT/HCPCS: 36415; 71045; 80048; 80053; 80069; 82947; 83605; 84145; 84443; 84484; 85025; 87040; 93005; 93010; 93306; 93308; 93321; 94660; 94762; 96374; 99285-25; A9270; J0456; J0696; J1100; J1650; J7030; J7050

== ENCOUNTER → 2021-03-12 | Outpatient (CLI) | payer BC ==
[2021-03-12 12:59] LABS: BASOPHILS ABSOLUTE AUTO 0.01 K/mm3 (0.00-0.23); BASOPHILS PERCENT AUTO 0 % (0-2); EOSINOPHILS PERCENT AUTO 0 % (0-6); Hematocrit 44.7 % (37.0-53.0); Hemoglobin 15.1 g/dL (13.5-17.5); IMMATURE GRAN ABSOLUTE AUTO 0.07 K/mm3 (0.00-0.10); IMMATURE GRAN PERCENT AUTO 1 % (0-1); LYMPHOCYTES ABSOLUTE AUTO 1.09 K/mm3 (0.84-5.20); LYMPHOCYTES PERCENT AUTO 12 % (21-46); MONOCYTES ABSOLUTE AUTO 0.54 K/mm3 (0.16-1.47); MONOCYTES PERCENT AUTO 6 % (4-13); Mean Corpuscular HGB 28.2 pg (26.0-34.0); Mean Corpuscular HGB Conc 33.8 g/dL (31.5-36.5); Mean Corpuscular Volume 84 fL (80-100); Mean Platelet Volume 9.9 fL (9.1-12.4); NEUTROPHILS PERCENT AUTO 81 % (41-73); Platelet Count 194 K/mm3 (150-400); RDW Coefficient Variation 15.2 % (11.7-14.2); RDW Standard Deviation 46.1 fL (35.1-46.3); Red Blood Cell Count 5.35 M/mm3 (4.30-5.90); White Blood Cell Count 9.11 K/mm3 (4.00-11.30)
[2021-03-12 13:04] LABS: Bun/Creatinine Ratio 10.6 (12.0-20.0); Creatinine, Blood 1.42 mg/dL (0.60-1.20); Potassium, Blood 3.7 mmol/L (3.5-5.5)
== END ==
LOC: LAB SHORT 12:54 → LAB 12:54
PROVIDERS: Physician Assistant Surgical
DX: R06.00 Dyspnea, unspecified (principal)
CPT/HCPCS: 80048; 85025

== ENCOUNTER → 2024-11-14 | Outpatient (CLI) | payer OTHER ==
[~2024-11-14] MED LIST changes: +AZIT250 PO; +Acetaminophen650 M1 PO; +BANOPHEN25 MG PO; +DEXA6 PO; +EPIPEN0.3 MG/0.3 IM; +FAMO20 PO; +MONDOXYNE NL100 MG PO; +OMEP20ER PO; +PRED20 PO; +ZOFRAN4 MG PO
== END ==
LOC: LAB SHORT 17:23 → LAB 17:23
DX: R31.29 Other microscopic hematuria (principal)
CPT/HCPCS: 87086